=== PATIENT | female | born 1935 | race Two or more races ===

== ENCOUNTER 2016-12-03 09:49 | Emergency (ER) | payer OTHER, MEDICAID ==
--- NOTE | 2016-12-03 10:03 | CPEKG ---
Heart Rate: 106 RR Interval: 566 P-R Interval: 160 QRSD Interval: 78 QT Interval: 364 QTC Interval: 484 P [place]: 63 QRS [place]: -25 T Wave [place]: 110 EKG Severity - ABNORMAL ECG - EKG Impression: SINUS TACHYCARDIA EKG Impression: VENTRICULAR PREMATURE COMPLEX EKG Impression: BORDERLINE LEFT AXIS DEVIATION EKG Impression: ABNORMAL T, CONSIDER ISCHEMIA, LATERAL LEADS Electronically Signed By: Jorge Farnsworth 07-Dec-2016 19:06:10
--- NOTE | 2016-12-03 10:22 | EDPHY ---
H & P Stated Complaint: Back pain to L chest and arm constant since Wednesday Time Seen by Provider: 12/03/16 09:55 HPI/ROS: 80-year-old female presents complaining of left-sided chest back and left axillary pain intermittent for the last 4 days. She has had some associated nausea. No vomiting. Cough, nonproductive no fevers no chills. Patient with history of [id number] diabetes, hypertension, hyperlipidemia. She denies history of prior myocardial infarction, coronary artery disease, stents. Review of systems As per HPI General no fever no chills no weakness HEENT no eye pain no eye discharge. No eye redness, no sore throat Respiratory positive cough, no shortness of breath Cardiac positive chest pain, no peripheral edema GI no abdominal pain, no diarrhea, positive constipation, no nausea, no vomiting no flank pain, no hematuria, no dysuria Musculoskeletal no myalgias, no joint pain Heme no easy bruising, no easy bleeding Endo no polyuria, no polydipsia Skin no rashes, no pruritus Neuro no syncope, no dizziness, no headaches Psych is no suicidal ideation, no homicidal ideation Source: Patient, Family Exam Limitations: Language barrier - Personal History Current Tetanus/Diphtheria Vaccine: Yes - Medical/Surgical History Hx Asthma: No Hx Chronic Respiratory Disease: No Hx Diabetes: Yes Hx Cardiac Disease: Yes Hx Renal Disease: No Hx Cirrhosis: No Hx Alcoholism: No Hx HIV/AIDS: No Hx Splenectomy or Spleen Trauma: No Other PMH: Diabetes, HTN, cholesterol, arthritis. Hyst. GB - Family History Significant Family History: No pertinent family hx - Social History Smoking Status: Never smoked Alcohol Use: None Drug Use: None - Physical Exam Exam: 80-year-old female alert and oriented in no acute distress nontoxic appearance afebrile Initial heart rate 111 Atraumatic, normocephalic Oropharynx no erythema no exudate Neck no JVD Lungs clear to auscultation bilaterally Heart rapid rate regular rhythm, systolic ejection murmur 2/6 Abdomen slightly distended, no pulsatile mass, bowel sounds present, soft, nontender no guarding Extremities no cyanosis clubbing or edema Neuro-no focal motor or sensory findings Constitutional: Initial Vital Signs Temperature (C) 37.1 C 12/03/16 10:04 Heart Rate 111 H 12/03/16 10:04 Respiratory Rate 20 12/03/16 10:04 Blood Pressure 129/76 H 12/03/16 10:04 O2 Sat (%) 93 12/03/16 10:04 O2 Delivery Mode Room Air Allergies/Adverse Reactions: No Known Allergies Allergy (Unverified 12/03/16 10:13) Home Medications: Medication Instructions Recorded Acarbose 12/03/16 Glipizide 12/03/16 Hydrochlorothiazide 12/03/16 Losartan Potassium 12/03/16 Metformin HCl 12/03/16 [place]-3 12/03/16 Pravastatin Sodium 12/03/16 Medical Decision Making - Diagnostics Imaging Results: Imaging Impressions Chest X-Ray 12/03/16 10:23 Impression: Elevated left hemidiaphragm with left basilar subsegmental atelectasis versus a mild infiltrate and associated peribronchial thickening. At Dr. Munoz's request, CT imaging will be subsequently performed. Chest/Thorax CTA 12/03/16 11:06 Impression: 1. No definite pulmonary thromboemboli. 2. Atherosclerotic aorta without aneurysm or dissection. 3. Bilateral peribronchial scarring with mild chronic bronchitis with minimal bilateral lower lobe parenchymal scarring. No definite acute pneumonia. 4. Elevated left hemidiaphragm Findings discussed with Emergency Department physician, Tatianna Munoz MD , at 1226 hours, 12/03/2016. Final report concurs with initial preliminary interpretation. A test result has been communicated to a licensed care provider and documented in the [facility] Critical Result system on 12/03/2016 12:26, Message ID [id number]. ED Course/Re-evaluation: Patient seen and evaluated for left-sided chest pain intermittent for 4 days duration. Sometimes associated with nausea. EKG-sinus tachycardia rate 111, inverted T-waves in leads 1, aVL Chest x-ray Elevated left hemidiaphragm, hiatal hernia No obvious infiltrate no CHF CT chest No pulmonary embolism No infiltrate Positive aortic calcification, positive hiatal hernia positive elevated left hemidiaphragm Labs Troponin negative D-dimer 0.6 slightly positive Lipase within normal limits CBC, CMP within normal limits Medical decision making Patient with multiple risk factors for coronary artery disease, age, hypertension, [id number] diabetes with T-wave inversion on EKG Impression Rule out coronary artery disease, rule out ACS Plan Admit to [facility] 23 hour observation, telemetry Discussed with hospitalist Dr. Kam Differential Diagnosis: Pulmonary embolus, , myocardial ischemia, pneumonia, bronchitis, hiatal hernia, musculoskeletal pain - Data Points Laboratory Results: Laboratory Results 12/03/16 10:30 12/03/16 10:30 12/03/16 12/03/16 12/03/16 10:30 10:30 10:30 WBC 6.93 10^3/uL 10^3/uL (3.80-9.50) RBC 4.59 10^6/uL 10^6/uL (4.18-5.33) Hgb 14.2 g/dL g/dL (12.6-16.3) Hct 42.8 % % (38.0-47.0) MCV 93.2 fL fL (81.5-99.8) MCH 30.9 pg pg (27.9-34.1) MCHC 33.2 g/dL g/dL (32.4-36.7) RDW 11.6 % % (11.5-15.2) Plt Count 181 10^3/uL 10^3/uL (150-400) MPV 10.3 fL fL (8.7-11.7) Neut % (Auto) 80.1 % H % (39.3-74.2) Lymph % (Auto) 14.9 % L % (15.0-45.0) [place] % (Auto) 4.5 % % (4.5-13.0) Eos % (Auto) 0.1 % L % (0.6-7.6) Baso % (Auto) 0.3 % % (0.3-1.7) Nucleat RBC Rel Count 0.0 % % (0.0-0.2) Absolute Neuts (auto) 5.55 10^3/uL 10^3/uL (1.70-6.50) Absolute Lymphs (auto) 1.03 10^3/uL 10^3/uL (1.00-3.00) Absolute Monos (auto) 0.31 10^3/uL 10^3/uL (0.30-0.80) Absolute Eos (auto) 0.01 10^3/uL L 10^3/uL (0.03-0.40) Absolute Basos (auto) 0.02 10^3/uL 10^3/uL (0.02-0.10) Absolute Nucleated RBC 0.00 10^3/uL 10^3/uL (0-0.01) Immature Gran % 0.1 % % (0.0-1.1) Immature Gran # 0.01 10^3/uL 10^3/uL (0.00-0.10) PT 12.0 SEC SEC (12.0-15.0) INR 0.91 (0.83-1.16) APTT 24.6 SEC SEC (23.0-38.0) D-Dimer 0.60 ug/mLFEU H ug/mLFEU (0.00-0.50) Sodium 139 mEq/L mEq/L (134-144) Potassium 4.5 mEq/L mEq/L (3.5-5.2) Chloride 98 mEq/L mEq/L (97-110) Carbon Dioxide 23 mEq/l mEq/l (22-31) Anion Gap 18 mEq/L H mEq/L (8-16) BUN 19 mg/dL mg/dL (7-23) Creatinine 1.0 mg/dL mg/dL (0.6-1.0) Estimated GFR 53 Glucose 282 mg/dL H mg/dL (70-100) Calcium 9.5 mg/dL mg/dL (8.5-10.4) Total Bilirubin 0.6 mg/dL mg/dL (0.1-1.4) AST 20 IU/L IU/L (14-46) ALT 27 IU/L IU/L (9-52) Alkaline Phosphatase 91 IU/L IU/L (38-126) Creatine Kinase 64 IU/L IU/L (0-156) Troponin I < 0.012 ng/mL ng/mL (0.000-0.034) Total Protein 6.9 g/dL g/dL (6.3-8.2) Albumin 4.2 g/dL g/dL (3.5-5.0) Lipase 108 IU/L IU/L (23-300) Medications Given: Discontinued Medications Aspirin (Aspirin) 324 mg PO EDNOW ONE Stop: 12/03/16 10:29 Last Admin: 12/03/16 10:31 Dose: 324 mg Departure - Departure Disposition: Acute Care Hospital Not [facility] Clinical Impression: Chest pain Condition: Good Referrals: Unknown,Unknown [Primary Care Provider] - As per Instructions
[2016-12-03] MEDS ORDERED: ASPIRIN 81 MG CHEWABLE TAB PO ONE (10:28)
[2016-12-03 10:35] LABS: % IMMATURE GRANULYOCYTES 0.1 % (0.0-1.1); ABSOLUTE IMMATURE GRANULOCYTES 0.01 10^3/uL (0.00-0.10); ADD DIFF? NO; ADD MORPH? NO; ADD SCAN? NO; ATYPICAL LYMPHOCYTE FLAG 0 (0-99); FRAGMENT RBC FLAG 0 (0-99); HEMATOCRIT 42.8 % (38.0-47.0); HEMOGLOBIN 14.2 g/dL (12.6-16.3); LEFT SHIFT FLG 0 (0-99); LIPEMIA HEMOLYSIS FLAG 80 (0-99); MEAN CELL HEMOGLOBIN 30.9 pg (27.9-34.1); MEAN CELL HEMOGLOBIN CONCENTR. 33.2 g/dL (32.4-36.7); MEAN CELL VOLUME 93.2 fL (81.5-99.8); MEAN PLATELET VOLUME 10.3 fL (8.7-11.7); PLATELET CLUMPS FLAG 0 (0-99); PLATELET COUNT 181 10^3/uL (150-400); RED BLOOD CELL COUNT 4.59 10^6/uL (4.18-5.33); RED CELL DISTRIBUTION WIDTH 11.6 % (11.5-15.2)
[2016-12-03 10:50] LABS: ALANINE AMINOTRANSFERASE 27 IU/L (9-52); ALBUMIN 4.2 g/dL (3.5-5.0); ALKALINE PHOSPHATASE 91 IU/L (38-126); ANION GAP 18 mEq/L (8-16); ASPARTATE AMINOTRANSFERASE 20 IU/L (14-46); BILIRUBIN,TOTAL 0.6 mg/dL (0.1-1.4); CALCIUM 9.5 mg/dL (8.5-10.4); CARBON DIOXIDE 23 mEq/l (22-31); CHLORIDE 98 mEq/L (97-110); GLOMERULAR FILTRATION RATE 53; GLUCOSE 282 mg/dL (70-100); POTASSIUM 4.5 mEq/L (3.5-5.2); SODIUM 139 mEq/L (134-144); TOTAL PROTEIN 6.9 g/dL (6.3-8.2)
[2016-12-03 10:54] LABS: INR 0.91 (0.83-1.16)
[2016-12-03 10:55] LABS: APTT 24.6 SEC (23.0-38.0)
[2016-12-03 11:00] LABS: TROPONIN I < 0.012 ng/mL (0.000-0.034)
[2016-12-03] MEDS ORDERED: IOPAMIDOL (ISOVUE 370) 100 ML BTL IV ONE (11:16)
[2016-12-03 13:14] VITALS: RESP 20
[2016-12-03 15:02] VITALS: O2SAT 96
[2016-12-03 15:05] VITALS: BP 160/106; PULSE 83; TEMP 97.7
== END 2016-12-03 14:55 | disposition short-term general hospital (02) ==
LOC: CED 09:49
DX: R07.9 Chest pain, unspecified (principal); E11.9 Type 2 diabetes mellitus without complications; I10 Essential (primary) hypertension; Z79.84 Long term (current) use of oral hypoglycemic drugs
CPT/HCPCS: 71020; 71275; 93005; 99285; Q9967; 80053-PO; 82550-PO; 83690-PO; 84484-PO; 85025-PO; 85378-PO; 85610-PO; 85730-PO